=== PATIENT | female | born 1990 | race African-American/Black ===

== ENCOUNTER 2022-11-27 11:56 | Emergency (ER) | payer MEDICAID ==
[~2022-11-27] VITALS: Ht 170.2 cm; Wt 111.0 kg
[2022-11-27] MEDS ORDERED: KETOROLAC 30MG/ML VIAL IM ONE (15:15)
[2022-11-27 15:40] VITALS: BP 148/73
== END 2022-11-27 16:19 | disposition left against medical advice (07) ==
LOC: ER 11:56
DX: M54.50 Low back pain, unspecified (principal); M54.2 Cervicalgia; V49.49XA Driver injured in collision with other motor vehicles in traffic accident, initial encounter; Y93.89 Activity, other specified; Y92.89 Other specified places as the place of occurrence of the external cause; Y99.8 Other external cause status
CPT/HCPCS: 81025; 96372; 99283; J1885

== ENCOUNTER 2025-06-20 08:35 | Emergency (ER) | payer MEDICAID ==
[~2025-06-20] VITALS: Ht 170.2 cm; Wt 95.0 kg
[2025-06-20 08:37] VITALS: O2SAT 98
[2025-06-20 09:13] LABS: CLARITY URINE TURBID (CLEAR); COLOR URINE ORANGE (YELLOW); GLUCOSE URINE NEGATIVE (NEGATIVE); KETONES URINE NEGATIVE (NEGATIVE); LEUKOCYTE ESTERASE URINE 1+ (NEGATIVE); NITRITE URINE NEGATIVE (NEGATIVE); OCCULT BLOOD URINE 3+ (NEGATIVE); PH URINE 7.5 (4.5-8.0); PROTEIN URINE 1+ (NEGATIVE); SPECIFIC GRAVITY URINE 1.026 (1.005-1.030); UROBILINOGEN URINE 1.0 E.U./dL (0.2-1.0)
[2025-06-20 09:16] LABS: BASOPHILS % 0.7 % (0.0-2.0); EOSINOPHILS % 3.9 % (0.0-5.0); HEMATOCRIT. 40.7 % (36.0-48.0); HEMOGLOBIN. 13.1 g/dL (12.0-16.0); LYMPHOCYTES % 40.7 % (20.0-50.0); MEAN PLATELET VOLUME 9.8 fl (7.4-10.4); MONOCYTES % 4.9 % (2.0-8.0); NEUTROPHILS % 49.8 % (40.0-76.0); PLATELET 317 x1000/uL (130-400); RED BLOOD CELL COUNT 4.57 mill/uL (4.2-5.4); RED CELL DISTRIBUTION WIDTH 13.6 % (11.6-14.6)
[2025-06-20 09:24] LABS: HCG SCREEN POSITIVE
[2025-06-20 09:30] LABS: CREATININE 0.7 mg/dL (0.6-1.0); UREA NITROGEN BLOOD 8 mg/dL (9-23)
[2025-06-20 09:31] LABS: ASPARTATE AMINOTRANSFERASE 15 IU/L (<34)
[2025-06-20 09:32] LABS: BILIRUBIN DIRECT 0.1 mg/dL (<=3.0); BILIRUBIN TOTAL 0.4 mg/dL (0.1-1.0); PROTEIN TOTAL 7.7 g/dL (6.0-8.3)
[2025-06-20 09:35] LABS: BACTERIA URINE 3+; RBC URINE TNTC /hpf (0-2); SQUAMOUS EPITHELIAL CELL URINE 3+ /lpf (RARE/1+); YEAST URINE NONE SEEN
[2025-06-20 09:38] LABS: INR 1.0
[2025-06-20 10:02] LABS: B-HCG QUANTITATIVE 10487 mIU/mL (<6)
[2025-06-20 12:53] VITALS: BP 110/77; PULSE 76; RESP 16; TEMP 36.8; O2SAT 99
== END 2025-06-20 13:05 | disposition home or self-care (01) ==
LOC: ER 08:35
DX: O20.0 Threatened abortion (principal); Z3A.01 Less than 8 weeks gestation of pregnancy
CPT/HCPCS: 36415; 76801; 80048; 80076; 81003; 84702; 84703; 85025; 86850; 86900; 99284

== ENCOUNTER 2025-07-17 11:58 | Emergency (ER) | payer MEDICAID ==
[~2025-07-17] VITALS: Ht 170.2 cm; Wt 110.0 kg
[2025-07-17 12:03] VITALS: O2SAT 99
[2025-07-17 12:37] VITALS: TEMP 36.9
[2025-07-17] MEDS: KETOROLAC 15MG/ML VIAL IV ONE (12:56)
[2025-07-17] MEDS: ACETAMINOPHEN 500MG TABLET PO ONE (12:56)
[2025-07-17 15:08] LABS: BASOPHILS % 0.4 % (0.0-2.0); EOSINOPHILS % 2.4 % (0.0-5.0); HEMATOCRIT. 31.6 % (36.0-48.0); HEMOGLOBIN. 10.2 g/dL (12.0-16.0); LYMPHOCYTES % 28.7 % (20.0-50.0); MEAN PLATELET VOLUME 10.0 fl (7.4-10.4); MONOCYTES % 4.3 % (2.0-8.0); NEUTROPHILS % 64.2 % (40.0-76.0); PLATELET 298 x1000/uL (130-400); RED BLOOD CELL COUNT 3.62 mill/uL (4.2-5.4); RED CELL DISTRIBUTION WIDTH 13.2 % (11.6-14.6)
[2025-07-17 15:22] LABS: B-HCG QUANTITATIVE 562 mIU/mL (<6); CREATININE 0.6 mg/dL (0.6-1.0)
[2025-07-17 15:23] LABS: PROTEIN TOTAL 7.1 g/dL (6.0-8.3); UREA NITROGEN BLOOD 7 mg/dL (9-23)
[2025-07-17 15:24] LABS: ASPARTATE AMINOTRANSFERASE 15 IU/L (<34)
[2025-07-17 15:25] LABS: BILIRUBIN TOTAL 0.4 mg/dL (0.1-1.0)
[2025-07-17] MEDS ORDERED: OXYTOCIN 30 UNITS/500ML NS 500 ML IV ONE (17:15)
[2025-07-17] MEDS ORDERED: MISOPROSTOL 200MCG TABLET PO ONE (17:15)
[2025-07-17] MEDS ORDERED: TOPUD PO (17:30)
[2025-07-17] MEDS ORDERED: IBUP-1455 MT (17:30)
[2025-07-17 17:44] VITALS: BP 118/61; PULSE 93; RESP 12; O2SAT 100
== END 2025-07-17 18:00 | disposition left against medical advice (07) ==
LOC: ER 11:58 → CANBEDREQ 17:48 → ER 18:00
DX: O03.4 Incomplete spontaneous abortion without complication (principal); D64.9 Anemia, unspecified; R10.20 Pelvic and perineal pain unspecified side
CPT/HCPCS: 99285; 96374; 76801; 80053; 84702; 85025; 36415; 76817; J1885; J7040; J2590